=== PATIENT | male | born 1965 | race Caucasian/White ===

== ENCOUNTER 2022-03-05 22:09 | Inpatient (IN) ==
[~2022-03-05 22:09] MED LIST: EPINEPHrine SYR 0.1MG/ML 10 ml SYRINGE ONE
[2022-03-05] MEDS ORDERED: Propofol 10 MG/ML 20 ML BTL IV PUSH ONE (22:23)
[2022-03-05] MEDS ORDERED: NS 0.9% 1000 ml BAG 3,000 ML IV ONE (22:29)
[2022-03-05 22:38] LABS: ABS Eosinophils 0.1 10^3/ul (0-0.6); ABS Lymphocytes 0.8 10^3/ul (1.0-4.8); ABS Monocytes 0.5 10^3/ul (0-0.8); ABS Neutrophils 13.2 10^3/ul (1.5-7.7); Eosinophil % 0.4 %; Hematocrit 45 % (42-52); Lymphocyte % 5.3 %; Mean Corpuscular HGB Conc 34 g/dL (31-36); Mean Corpuscular Hemoglobin 29 pg (27-31); Mean Corpuscular Volume 87 fL (80-94); Mean Platelet Volume 8.7 fL (7.4-10.4); Platelet Count 206 10^3/uL (150-450); Red Cell Distribution Width 15 % (10-15); White Blood Count 14.6 10^3/uL (3.5-10.8)
[2022-03-05 22:50] LABS: Activated Partial Thrombo Time 32.6 seconds (26.0-38.0); INR 1.29 (0.89-1.11)
[2022-03-05] MEDS ORDERED: Succinylcholine 200 mg VIAL 20 mg/ml 10 ml VIAL (200 mg) ONE (23:01)
[2022-03-05] MEDS ORDERED: Esmolol 10 MG/ML IVPREMIX 2,500 MG/250 ML BAG IV ONE (23:05)
[2022-03-05] MEDS ORDERED: Ondansetron 4 mg VIAL 2 MG/ML 2 ml VIAL IV PRN (23:17)
[2022-03-05 23:24] LABS: Albumin 4.1 g/dL (3.2-5.2); Potassium 3.9 mmol/L (3.5-5.0)
[2022-03-05 23:30] LABS: Albumin/Globulin Ratio 1.8 (1-3); C Reactive Protein 22.43 mg/L (<8.01); Globulin 2.3 g/dL (2-4); Total Protein 6.4 g/dL (6.4-8.9); eGFR CKD-EPI 78.1 (>60)
[2022-03-05] MEDS ORDERED: Propofol 10 mg/ml 100 ML BTL 100 ML ONE (23:37)
[2022-03-05] MEDS: Propofol 10 mg/ml 100 ML BTL 100 ML IV SCH (23:45)
[2022-03-05] MEDS ORDERED: Enoxaparin 100 MG/ML SYR SUBCUT SCH (23:45)
[2022-03-06] MEDS ORDERED: fentaNYL 100 mcg/2 ml 50 MCG/ML VIAL IV SLOW PU ONE (00:04)
[2022-03-06] MEDS ORDERED: Acetaminophen IV 1 GM/100ML 1,000 MG/100 ML BAG IV ONE (00:17)
[2022-03-06] MEDS: Acetaminophen IV 1 GM/100ML 1,000 MG/100 ML BAG IV SCH ×3 (00:19→12:44)
[2022-03-06] MEDS: Pantoprazole VIAL 40 MG VIAL IV SCH ×2 (00:26→23:44)
[2022-03-06] MEDS: Chlorhexidine MOUTHWASH 0.12% 15 ML UDC TOPICAL SCH ×7 (00:26→23:35)
[2022-03-06] MEDS ORDERED: Vancomycin 1,000 MG in NS 0.9% 250 ml 250 ML IVPB ONE (00:42)
[2022-03-06] MEDS ORDERED: Piperacillin/Tazobac ADVAN 3.375 GM in NS 0.9% 100 ml BAG 100 ML IV ONE (00:42)
[2022-03-06] MEDS ORDERED: Enoxaparin 100 MG/ML SYR SUBCUT SCH (01:00)
[2022-03-06] MEDS ORDERED: Vancomycin per Pharmacy 1 EA NOTE FOLLOW UP SCH (01:00)
[2022-03-06] MEDS ORDERED: Zosyn per Pharmacy NOTE FOLLOW UP SCH (01:00)
[2022-03-06] MEDS ORDERED: Vancomycin 2,000 MG in NS 0.9% 500 ml BAG 500 ML IVPB ONE (01:00)
[2022-03-06 01:01] LABS: PCO2 Arterial 39 mmHg (35-45); PO2 Arterial 153 mmHg (80-100)
[2022-03-06 01:05] LABS: Urine Appearance Cloudy; Urine Bilirubin Negative (Negative); Urine Blood 1+ (Negative); Urine Color Amber; Urine Glucose Negative (Negative); Urine Ketones Negative (Negative); Urine Nitrite Negative (Negative); Urine Protein 2+(100 mg/dL) (Negative); Urine Specific Gravity 1.019 (1.002-1.030); Urine Urobilinogen Positive (Negative)
[2022-03-06 01:06] LABS: Magnesium 1.7 mg/dL (1.9-2.7)
[2022-03-06 01:11] LABS: Urine Bacteria Absent (Absent); Urine Red Blood Cell 3+(>10/hpf) (Absent); Urine Squamous Epithelial Cell Present (Absent); Urine White Blood Cell Trace(0-5/hpf) (Absent)
[2022-03-06] MEDS: Norepinephrine 16MCG/ML BAGD5W 4,000 MCG/250 ML BAG IV SCH ×6 (01:20→20:05)
[2022-03-06] MEDS ORDERED: Iodixanol (CONTRAST) 320 MG/ML 100 ML SDV IV ONE (01:31)
[2022-03-06] MEDS: Propofol 10 mg/ml 100 ML BTL 100 ML IV SCH ×9 (01:50→22:03)
[2022-03-06 02:18] LABS: High Sensitivity Troponin 1 Hr 428 pg/mL (<20)
[2022-03-06 02:34] LABS: Blood Urea Nitrogen 22 mg/dL (6-24); CO2 Carbon Dioxide 24 mmol/L (22-32); Calcium 9.8 mg/dL (8.6-10.3); Chloride 108 mmol/L (101-111); Glucose 155 mg/dL (70-100); Sodium 140 mmol/L (135-145); eGFR CKD-EPI 46.7 (>60)
[2022-03-06 02:41] LABS: Anion Gap 8 mmol/L (2-11)
[2022-03-06] MEDS: DOXYcycline 100 MG in NS 0.9% 250 ml 250 ML IVPB SCH ×2 (03:04→13:26)
[2022-03-06] MEDS ORDERED: Dextrose 50% Syringe 50 ml 25 GM/50 ML SYRINGE IV PUSH PRN (03:58)
[2022-03-06] MEDS: Lactated Ringers 1000 ml BAG 1,000 ML IV SCH ×3 (04:05→20:08)
[2022-03-06 05:45] LABS: Hematocrit 46 % (42-52); Hemoglobin 15.1 g/dL (14.0-18.0); Mean Corpuscular HGB Conc 33 g/dL (31-36); Mean Corpuscular Hemoglobin 29 pg (27-31); Mean Corpuscular Volume 89 fL (80-94); Mean Platelet Volume 8.6 fL (7.4-10.4); Platelet Count 251 10^3/uL (150-450); Red Blood Count 5.16 10^6 /uL (4.18-5.48); Red Cell Distribution Width 15 % (10-15); White Blood Count 32.9 10^3/uL (3.5-10.8)
[2022-03-06 06:25] LABS: Albumin 3.7 g/dL (3.2-5.2); Albumin/Globulin Ratio 1.9 (1-3); Calcium 9.5 mg/dL (8.6-10.3); Globulin 1.9 g/dL (2-4); Magnesium 1.9 mg/dL (1.9-2.7); Phosphorus 1.5 mg/dL (2.5-5.0); Potassium 3.5 mmol/L (3.5-5.0); Total Bilirubin 2.4 mg/dL (0.2-1.0); Total Protein 5.6 g/dL (6.4-8.9); eGFR CKD-EPI 35.3 (>60)
[2022-03-06] MEDS ORDERED: Potassium Phosphate IV 10 MMOLE in NS 0.9% 250 ml 250 ML IVPB ONE (06:35)
[2022-03-06 07:09] LABS: RBC Morphology Normal (Normal)
[2022-03-06 07:10] LABS: ABS Basophils 0.1 10^3/ul (0-0.2); ABS Lymphocytes 0.8 10^3/ul (1.0-4.8); ABS Monocytes 1.1 10^3/ul (0-0.8); ABS Neutrophils 30.8 10^3/ul (1.5-7.7); Lymphocyte % 2.6 %
[2022-03-06] MEDS ORDERED: Magnesium Sulfate IV 1GM/100ML 1 GM/100 ML BAG IV ONE ×2 (08:29→10:31)
[2022-03-06] MEDS: ZOSYN 3.375 GM Q8H per EXTENDED INFUSION IV SCH ×3 (08:48→23:34)
[2022-03-06 10:11] LABS: TSH Ultra Thyroid Stim Horm 2.12 mcIU/mL (0.34-5.60)
[2022-03-06 10:13] LABS: Free T4 0.96 ng/dL (0.61-1.12)
[2022-03-06] MEDS ORDERED: Perflutren Lipid Microsphere 3 ML VIAL ONE (11:56)
[2022-03-06 12:46] LABS: Calcium 9.2 mg/dL (8.6-10.3); Magnesium 2.3 mg/dL (1.9-2.7); Phosphorus 4.4 mg/dL (2.5-5.0); Potassium 4.4 mmol/L (3.5-5.0); Vancomycin Random 14.7 mcg/mL; eGFR CKD-EPI 28.9 (>60)
[2022-03-06] MEDS ORDERED: Amiodarone 150 mg IVPREMIX 150 MG/100 ML BAG IV ONE (14:45)
[2022-03-06] MEDS ORDERED: .Amiodarone 24HR ONLY IV Protocol Order Note IV ONE (14:45)
[2022-03-06] MEDS ORDERED: Amiodarone 360 MG IVPREMIX 360 MG/200 ML BAG IV SCH (15:00)
[2022-03-06] MEDS ORDERED: Vancomycin Random Level NOTE FOLLOW UP ONE (16:00)
[2022-03-06 16:38] LABS: PCO2 Arterial 32 mmHg (35-45); PO2 Arterial 75 mmHg (80-100)
[2022-03-06] MEDS ORDERED: Vancomycin 1,500 MG in NS 0.9% 250 ml 250 ML IVPB ONE (20:00)
[2022-03-06] MEDS: Amiodarone 360 MG IVPREMIX 360 MG/200 ML BAG IV SCH (21:09)
[2022-03-06] MEDS: Acetaminophen IV 1 GM/100ML 1,000 MG/100 ML BAG IV PRN (23:38)
[2022-03-07] MEDS: Propofol 10 mg/ml 100 ML BTL 100 ML IV SCH ×9 (00:30→21:23)
[2022-03-07] MEDS: DOXYcycline 100 MG in NS 0.9% 250 ml 250 ML IVPB SCH ×2 (00:48→13:02)
[2022-03-07] MEDS: Chlorhexidine MOUTHWASH 0.12% 15 ML UDC TOPICAL SCH ×6 (02:07→21:15)
[2022-03-07] MEDS: Lactated Ringers 1000 ml BAG 1,000 ML IV SCH ×4 (04:09→20:59)
[2022-03-07 04:30] LABS: ABS Basophils 0.1 10^3/ul (0-0.2); ABS Lymphocytes 0.8 10^3/ul (1.0-4.8); ABS Neutrophils 19.4 10^3/ul (1.5-7.7); Hematocrit 40 % (42-52); Hemoglobin 13.5 g/dL (14.0-18.0); Lymphocyte % 3.7 %; Mean Corpuscular HGB Conc 34 g/dL (31-36); Mean Corpuscular Hemoglobin 30 pg (27-31); Mean Corpuscular Volume 88 fL (80-94); Mean Platelet Volume 8.6 fL (7.4-10.4); Platelet Count 174 10^3/uL (150-450); Red Blood Count 4.57 10^6 /uL (4.18-5.48); Red Cell Distribution Width 15 % (10-15); White Blood Count 21.4 10^3/uL (3.5-10.8)
[2022-03-07 04:56] LABS: Albumin/Globulin Ratio 1.8 (1-3); Calcium 8.8 mg/dL (8.6-10.3); Globulin 1.7 g/dL (2-4); Phosphorus 4.1 mg/dL (2.5-5.0); Total Bilirubin 1.3 mg/dL (0.2-1.0); Total Protein 4.7 g/dL (6.4-8.9); eGFR CKD-EPI 22.4 (>60)
[2022-03-07] MEDS: Levothyroxine 100 MCG/5 ML VIAL IV SCH (05:56)
[2022-03-07] MEDS ORDERED: Vancomycin Random Level NOTE FOLLOW UP ONE (06:00)
[2022-03-07] MEDS: ZOSYN 3.375 GM Q8H per EXTENDED INFUSION IV SCH ×3 (06:27→23:37)
[2022-03-07] MEDS: Acetaminophen IV 1 GM/100ML 1,000 MG/100 ML BAG IV PRN (08:06)
[2022-03-07] MEDS: Amiodarone 360 MG IVPREMIX 360 MG/200 ML BAG IV SCH (08:08)
[2022-03-07 11:28] LABS: Urine Creatinine Concentration 103.59 mg/dL; Urine Sodium Concentration < 18 mmol/L
[2022-03-07] MEDS: Heparin DRIP 25,000 UNITS BAG 25,000 UNITS/500 ML BAG IV SCH (14:10)
[2022-03-07] MEDS: Acetaminophen IV 1 GM/100ML 1,000 MG/100 ML BAG IV SCH ×2 (15:13→21:14)
[2022-03-07] MEDS: Pantoprazole VIAL 40 MG VIAL IV SCH (23:15)
[2022-03-08] MEDS: Propofol 10 mg/ml 100 ML BTL 100 ML IV SCH ×10 (00:01→22:50)
[2022-03-08] MEDS: DOXYcycline 100 MG in NS 0.9% 250 ml 250 ML IVPB SCH ×2 (00:41→12:21)
[2022-03-08] MEDS: Chlorhexidine MOUTHWASH 0.12% 15 ML UDC TOPICAL SCH ×6 (02:24→21:23)
[2022-03-08] MEDS: Heparin DRIP 25,000 UNITS BAG 25,000 UNITS/500 ML BAG IV SCH (02:46)
[2022-03-08] MEDS: Lactated Ringers 1000 ml BAG 1,000 ML IV SCH (04:47)
[2022-03-08] MEDS: Acetaminophen IV 1 GM/100ML 1,000 MG/100 ML BAG IV SCH ×3 (05:48→21:24)
[2022-03-08] MEDS: Levothyroxine 100 MCG/5 ML VIAL IV SCH (05:50)
[2022-03-08 05:55] LABS: ABS Lymphocytes 0.7 10^3/ul (1.0-4.8); ABS Monocytes 0.6 10^3/ul (0-0.8); ABS Neutrophils 14.4 10^3/ul (1.5-7.7); Eosinophil % 0.3 %; Hematocrit 35 % (42-52); Hemoglobin 12.1 g/dL (14.0-18.0); Lymphocyte % 4.5 %; Mean Corpuscular HGB Conc 34 g/dL (31-36); Mean Corpuscular Hemoglobin 30 pg (27-31); Mean Corpuscular Volume 88 fL (80-94); Mean Platelet Volume 8.7 fL (7.4-10.4); Platelet Count 152 10^3/uL (150-450); Red Blood Count 4.03 10^6 /uL (4.18-5.48); Red Cell Distribution Width 15 % (10-15); White Blood Count 15.8 10^3/uL (3.5-10.8)
[2022-03-08 06:45] LABS: Albumin 2.8 g/dL (3.2-5.2); Albumin/Globulin Ratio 1.6 (1-3); Calcium 8.5 mg/dL (8.6-10.3); Globulin 1.8 g/dL (2-4); Magnesium 2.1 mg/dL (1.9-2.7); Phosphorus 5.5 mg/dL (2.5-5.0); Potassium 3.8 mmol/L (3.5-5.0); Total Bilirubin 0.9 mg/dL (0.2-1.0); Total Protein 4.6 g/dL (6.4-8.9); eGFR CKD-EPI 18.1 (>60)
[2022-03-08] MEDS: ZOSYN 3.375 GM Q8H per EXTENDED INFUSION IV SCH ×3 (06:57→23:14)
[2022-03-08] MEDS ORDERED: Potassium Chloride LIQUID 20 MEQ/15 ML LIQUID PO ONE (07:46)
[2022-03-08] MEDS ORDERED: Furosemide 40 mg/4 ml IV VIAL IV ONE (09:02)
[2022-03-08] MEDS: Linezolid 600 MG IVPREMIX(*) 600 MG/300 ML BAG IVPB SCH ×2 (09:26→23:16)
[2022-03-08] MEDS ORDERED: Heparin DRIP 25,000 UNITS BAG 25,000 UNITS/500 ML BAG IV SCH (11:15)
[2022-03-08] MEDS ORDERED: Acetylcysteine INHALATION SOL 200 MG/ML NEB.SOLN 10 ML ONE (13:16)
[2022-03-08 14:26] LABS: Body Fluid Source Broncheoalveolar lav
[2022-03-08 16:04] LABS: Body Fluid Appearance Cloudy; Body Fluid Color Colorless
[2022-03-08 18:57] LABS: Calcium 8.7 mg/dL (8.6-10.3); Potassium 3.7 mmol/L (3.5-5.0)
[2022-03-08 20:11] LABS: Body Fluid Other Cells 5; Body Fluid Total Cells Counted 300
[2022-03-08] MEDS ORDERED: KCL 20 MEQ/100 ML IVPREMIX 20 MEQ/100 ML BAG IV ONE (20:52)
[2022-03-09] MEDS: Pantoprazole VIAL 40 MG VIAL IV SCH ×2 (00:02→23:31)
[2022-03-09] MEDS: Propofol 10 mg/ml 100 ML BTL 100 ML IV SCH ×5 (01:05→09:00)
[2022-03-09] MEDS: DOXYcycline 100 MG in NS 0.9% 250 ml 250 ML IVPB SCH ×2 (01:17→15:15)
[2022-03-09] MEDS: Chlorhexidine MOUTHWASH 0.12% 15 ML UDC TOPICAL SCH ×3 (02:45→11:00)
[2022-03-09] MEDS: Levothyroxine 100 MCG/5 ML VIAL IV SCH (05:15)
[2022-03-09] MEDS: Acetaminophen IV 1 GM/100ML 1,000 MG/100 ML BAG IV SCH ×3 (05:49→20:55)
[2022-03-09 05:55] LABS: ABS Basophils 0.1 10^3/ul (0-0.2); ABS Eosinophils 0.3 10^3/ul (0-0.6); ABS Lymphocytes 0.7 10^3/ul (1.0-4.8); ABS Monocytes 0.5 10^3/ul (0-0.8); ABS Neutrophils 9.7 10^3/ul (1.5-7.7); Eosinophil % 2.7 %; Hematocrit 37 % (42-52); Hemoglobin 12.1 g/dL (14.0-18.0); Lymphocyte % 6.1 %; Mean Corpuscular HGB Conc 33 g/dL (31-36); Mean Corpuscular Hemoglobin 30 pg (27-31); Mean Corpuscular Volume 89 fL (80-94); Mean Platelet Volume 8.7 fL (7.4-10.4); Platelet Count 156 10^3/uL (150-450); Red Blood Count 4.09 10^6 /uL (4.18-5.48); Red Cell Distribution Width 15 % (10-15); White Blood Count 11.3 10^3/uL (3.5-10.8)
[2022-03-09 06:10] LABS: Albumin/Globulin Ratio 1.5 (1-3); Magnesium 2.1 mg/dL (1.9-2.7); Phosphorus 4.5 mg/dL (2.5-5.0); Potassium 3.7 mmol/L (3.5-5.0); Total Bilirubin 1.1 mg/dL (0.2-1.0); eGFR CKD-EPI 18.9 (>60)
[2022-03-09] MEDS ORDERED: KCL 20 MEQ/100 ML IVPREMIX 20 MEQ/100 ML BAG IV ONE (06:17)
[2022-03-09] MEDS: ZOSYN 3.375 GM Q8H per EXTENDED INFUSION IV SCH ×3 (07:58→23:32)
[2022-03-09 10:42] LABS: PCO2 Arterial 32 mmHg (35-45); PO2 Arterial 66 mmHg (80-100)
[2022-03-09] MEDS: Linezolid 600 MG IVPREMIX(*) 600 MG/300 ML BAG IVPB SCH ×2 (11:00→20:01)
[2022-03-09 20:27] LABS: Anaplasma phagocytophilum Negative (Negative); B. miyamotoi PCR, B Negative (Negative); Babesia divergens/MO-1 Negative (Negative); Babesia ducani Negative (Negative); Ehrlichia chaffeensis Negative (Negative); Ehrlichia ewingii/canis Negative (Negative); Ehrlichia muris eauclairensis Negative (Negative)
[2022-03-10] MEDS: DOXYcycline 100 MG in NS 0.9% 250 ml 250 ML IVPB SCH ×2 (01:51→12:18)
[2022-03-10] MEDS: Levothyroxine 100 MCG/5 ML VIAL IV SCH (04:49)
[2022-03-10 04:59] LABS: Hematocrit 34 % (42-52); Hemoglobin 11.5 g/dL (14.0-18.0); Mean Corpuscular HGB Conc 34 g/dL (31-36); Mean Corpuscular Hemoglobin 30 pg (27-31); Mean Corpuscular Volume 89 fL (80-94); Mean Platelet Volume 8.6 fL (7.4-10.4); Platelet Count 144 10^3/uL (150-450); Red Blood Count 3.84 10^6 /uL (4.18-5.48); Red Cell Distribution Width 15 % (10-15)
[2022-03-10 05:39] LABS: Albumin 2.9 g/dL (3.2-5.2); Albumin/Globulin Ratio 1.5 (1-3); Globulin 1.9 g/dL (2-4); Magnesium 2.2 mg/dL (1.9-2.7); Potassium 3.7 mmol/L (3.5-5.0); Total Bilirubin 1.2 mg/dL (0.2-1.0); Total Protein 4.8 g/dL (6.4-8.9); eGFR CKD-EPI 21.9 (>60)
[2022-03-10] MEDS ORDERED: KCL 20 MEQ/100 ML IVPREMIX 20 MEQ/100 ML BAG IV ONE (05:59)
[2022-03-10 07:18] LABS: ABS Eosinophils 0.3 10^3/ul (0-0.6); ABS Lymphocytes 0.6 10^3/ul (1.0-4.8); ABS Monocytes 0.6 10^3/ul (0-0.8); ABS Neutrophils 7.4 10^3/ul (1.5-7.7); Eosinophil % 3.8 %; Lymphocyte % 6.7 %
[2022-03-10] MEDS: Lidocaine PATCH 5% PATCH TRANSDERM SCH (08:09)
[2022-03-10] MEDS: ZOSYN 3.375 GM Q8H per EXTENDED INFUSION IV SCH ×3 (08:09→23:15)
[2022-03-10] MEDS: Pantoprazole VIAL 40 MG VIAL IV SCH (23:15)
[2022-03-11] MEDS: DOXYcycline 100 MG in NS 0.9% 250 ml 250 ML IVPB SCH ×2 (00:36→13:42)
[2022-03-11 03:34] LABS: Hematocrit 32 % (42-52); Hemoglobin 10.6 g/dL (14.0-18.0); Mean Corpuscular HGB Conc 33 g/dL (31-36); Mean Corpuscular Hemoglobin 30 pg (27-31); Mean Corpuscular Volume 90 fL (80-94); Mean Platelet Volume 8.7 fL (7.4-10.4); Platelet Count 149 10^3/uL (150-450); Red Blood Count 3.55 10^6 /uL (4.18-5.48); Red Cell Distribution Width 15 % (10-15); White Blood Count 8.3 10^3/uL (3.5-10.8)
[2022-03-11 03:40] LABS: ABS Eosinophils 0.3 10^3/ul (0-0.6); ABS Lymphocytes 0.7 10^3/ul (1.0-4.8); ABS Monocytes 0.6 10^3/ul (0-0.8); ABS Neutrophils 6.6 10^3/ul (1.5-7.7); Eosinophil % 3.2 %; Lymphocyte % 8.9 %
[2022-03-11 04:29] LABS: Albumin/Globulin Ratio 1.8 (1-3); Calcium 9.2 mg/dL (8.6-10.3); Globulin 1.7 g/dL (2-4); Magnesium 2.1 mg/dL (1.9-2.7); Phosphorus 3.8 mg/dL (2.5-5.0); Potassium 3.7 mmol/L (3.5-5.0); Total Bilirubin 1.2 mg/dL (0.2-1.0); Total Protein 4.7 g/dL (6.4-8.9); eGFR CKD-EPI 24.9 (>60)
[2022-03-11] MEDS: Levothyroxine 100 MCG/5 ML VIAL IV SCH (06:21)
[2022-03-11] MEDS ORDERED: Potassium Chlor 20 meq TAB.ER PO ONE (08:00)
[2022-03-11] MEDS: ZOSYN 3.375 GM Q8H per EXTENDED INFUSION IV SCH ×3 (10:20→21:37)
[2022-03-11] MEDS: Lidocaine PATCH 5% PATCH TRANSDERM SCH (10:20)
[2022-03-12] MEDS: DOXYcycline 100 MG in NS 0.9% 250 ml 250 ML IVPB SCH (00:11)
[2022-03-12 07:05] LABS: Hematocrit 34 % (42-52); Hemoglobin 11.6 g/dL (14.0-18.0); Mean Corpuscular HGB Conc 34 g/dL (31-36); Mean Corpuscular Hemoglobin 30 pg (27-31); Mean Corpuscular Volume 89 fL (80-94); Mean Platelet Volume 8.3 fL (7.4-10.4); Platelet Count 200 10^3/uL (150-450); Red Blood Count 3.88 10^6 /uL (4.18-5.48); Red Cell Distribution Width 15 % (10-15); White Blood Count 7.8 10^3/uL (3.5-10.8)
[2022-03-12 07:20] LABS: Albumin 3.3 g/dL (3.2-5.2); CO2 Carbon Dioxide 19 mmol/L (22-32); Calcium 9.7 mg/dL (8.6-10.3); Chloride 109 mmol/L (101-111); Sodium 141 mmol/L (135-145)
[2022-03-12 07:24] LABS: Anion Gap 13 mmol/L (2-11)
[2022-03-12 07:25] LABS: ALT 55 U/L (7-52); Albumin/Globulin Ratio 1.5 (1-3); Alkaline Phosphatase 143 U/L (35-149); Blood Urea Nitrogen 47 mg/dL (6-24); Globulin 2.2 g/dL (2-4); Glucose 145 mg/dL (70-100); Total Protein 5.5 g/dL (6.4-8.9)
[2022-03-12] MEDS: Lidocaine PATCH 5% PATCH TRANSDERM SCH (08:48)
[2022-03-12 09:15] LABS: ABS Eosinophils 0.4 10^3/ul (0-0.6); ABS Lymphocytes 0.7 10^3/ul (1.0-4.8); ABS Monocytes 0.5 10^3/ul (0-0.8); ABS Neutrophils 6.1 10^3/ul (1.5-7.7); Eosinophil % 4.6 %; Lymphocyte % 9.1 %; Nucleated Red Blood Cells % 0.1
[2022-03-13 08:26] LABS: Hematocrit 38 % (42-52); Hemoglobin 12.3 g/dL (14.0-18.0); Mean Corpuscular HGB Conc 33 g/dL (31-36); Mean Corpuscular Hemoglobin 30 pg (27-31); Mean Corpuscular Volume 91 fL (80-94); Mean Platelet Volume 7.9 fL (7.4-10.4); Platelet Count 227 10^3/uL (150-450); Red Blood Count 4.15 10^6 /uL (4.18-5.48); Red Cell Distribution Width 14 % (10-15); White Blood Count 7.2 10^3/uL (3.5-10.8)
[2022-03-13 08:52] LABS: Anion Gap 14 mmol/L (2-11); CO2 Carbon Dioxide 16 mmol/L (22-32); Calcium 10.1 mg/dL (8.6-10.3); Chloride 110 mmol/L (101-111); Magnesium 1.9 mg/dL (1.9-2.7); Sodium 140 mmol/L (135-145)
[2022-03-13 08:57] LABS: Blood Urea Nitrogen 45 mg/dL (6-24); Glucose 155 mg/dL (70-100); eGFR CKD-EPI 28.3 (>60)
[2022-03-13 09:10] LABS: ABS Eosinophils 0.2 10^3/ul (0-0.6); ABS Lymphocytes 0.8 10^3/ul (1.0-4.8); ABS Monocytes 0.6 10^3/ul (0-0.8); ABS Neutrophils 5.5 10^3/ul (1.5-7.7); Eosinophil % 3.4 %; Lymphocyte % 10.8 %; Nucleated Red Blood Cells % 0.1
[2022-03-13 10:09] LABS: Phosphorus 3.7 mg/dL (2.5-5.0); Potassium Redraw 3.8 mmol/L (3.5-5.0)
[2022-03-13] MEDS: Lidocaine PATCH 5% PATCH TRANSDERM SCH (12:12)
[2022-03-14 06:02] LABS: ABS Eosinophils 0.3 10^3/ul (0-0.6); ABS Lymphocytes 0.8 10^3/ul (1.0-4.8); ABS Monocytes 0.6 10^3/ul (0-0.8); Eosinophil % 3.3 %; Hematocrit 35 % (42-52); Mean Corpuscular HGB Conc 34 g/dL (31-36); Mean Corpuscular Hemoglobin 31 pg (27-31); Mean Corpuscular Volume 89 fL (80-94); Mean Platelet Volume 8.3 fL (7.4-10.4); Platelet Count 285 10^3/uL (150-450); Red Blood Count 3.92 10^6 /uL (4.18-5.48); Red Cell Distribution Width 14 % (10-15); White Blood Count 7.7 10^3/uL (3.5-10.8)
[2022-03-14 06:16] LABS: Potassium 3.6 mmol/L (3.5-5.0); eGFR CKD-EPI 29.2 (>60)
[2022-03-14] MEDS: Lidocaine PATCH 5% PATCH TRANSDERM SCH (09:39)
[2022-03-15 05:56] LABS: ABS Eosinophils 0.2 10^3/ul (0-0.6); ABS Lymphocytes 0.9 10^3/ul (1.0-4.8); ABS Monocytes 0.7 10^3/ul (0-0.8); ABS Neutrophils 6.4 10^3/ul (1.5-7.7); Eosinophil % 2.7 %; Hematocrit 34 % (42-52); Hemoglobin 11.3 g/dL (14.0-18.0); Lymphocyte % 10.5 %; Mean Corpuscular HGB Conc 34 g/dL (31-36); Mean Corpuscular Hemoglobin 30 pg (27-31); Mean Corpuscular Volume 89 fL (80-94); Mean Platelet Volume 7.5 fL (7.4-10.4); Platelet Count 310 10^3/uL (150-450); Red Blood Count 3.81 10^6 /uL (4.18-5.48); Red Cell Distribution Width 14 % (10-15); White Blood Count 8.2 10^3/uL (3.5-10.8)
[2022-03-15 06:33] LABS: Magnesium 1.8 mg/dL (1.9-2.7); Potassium 3.7 mmol/L (3.5-5.0); eGFR CKD-EPI 31.4 (>60)
[2022-03-15] MEDS: Lidocaine PATCH 5% PATCH TRANSDERM SCH (08:44)
[2022-03-16] MEDS: Lidocaine PATCH 5% PATCH TRANSDERM SCH (09:14)
[2022-03-16 10:09] LABS: Calcium 10.6 mg/dL (8.6-10.3); Potassium 3.4 mmol/L (3.5-5.0); eGFR CKD-EPI 35.1 (>60)
[2022-03-16] MEDS ORDERED: Potassium Chlor 20 meq TAB.ER PO ONE (16:22)
[2022-03-17] MEDS: Lidocaine PATCH 5% PATCH TRANSDERM SCH (09:08)
[2022-03-17 09:29] LABS: ABS Basophils 0.1 10^3/ul (0-0.2); ABS Eosinophils 0.2 10^3/ul (0-0.6); ABS Lymphocytes 0.9 10^3/ul (1.0-4.8); ABS Monocytes 0.6 10^3/ul (0-0.8); ABS Neutrophils 5.5 10^3/ul (1.5-7.7); Eosinophil % 2.4 %; Hematocrit 37 % (42-52); Hemoglobin 12.4 g/dL (14.0-18.0); Mean Corpuscular HGB Conc 34 g/dL (31-36); Mean Corpuscular Hemoglobin 30 pg (27-31); Mean Corpuscular Volume 89 fL (80-94); Mean Platelet Volume 7.6 fL (7.4-10.4); Platelet Count 372 10^3/uL (150-450); Red Blood Count 4.12 10^6 /uL (4.18-5.48); Red Cell Distribution Width 14 % (10-15); White Blood Count 7.2 10^3/uL (3.5-10.8)
[2022-03-17 09:43] LABS: Calcium 10.9 mg/dL (8.6-10.3); Magnesium 1.8 mg/dL (1.9-2.7); Potassium 3.8 mmol/L (3.5-5.0)
[2022-03-17 09:49] LABS: eGFR CKD-EPI 35.3 (>60)
[2022-03-17] MEDS ORDERED: Magnesium Sulfate IV 1GM/100ML 1 GM/100 ML BAG IV ONE (10:48)
[2022-03-18 07:14] LABS: ABS Eosinophils 0.2 10^3/ul (0-0.6); ABS Monocytes 0.7 10^3/ul (0-0.8); ABS Neutrophils 5.8 10^3/ul (1.5-7.7); Eosinophil % 2.6 %; Hematocrit 40 % (42-52); Hemoglobin 13.4 g/dL (14.0-18.0); Lymphocyte % 13.1 %; Mean Corpuscular HGB Conc 34 g/dL (31-36); Mean Corpuscular Hemoglobin 30 pg (27-31); Mean Corpuscular Volume 89 fL (80-94); Mean Platelet Volume 7.6 fL (7.4-10.4); Nucleated Red Blood Cells % 0.1; Platelet Count 376 10^3/uL (150-450); Red Blood Count 4.45 10^6 /uL (4.18-5.48); Red Cell Distribution Width 14 % (10-15); White Blood Count 7.7 10^3/uL (3.5-10.8)
[2022-03-18 07:58] LABS: CO2 Carbon Dioxide 21 mmol/L (22-32); Calcium 10.7 mg/dL (8.6-10.3); Chloride 104 mmol/L (101-111); Sodium 138 mmol/L (135-145)
[2022-03-18 08:04] LABS: Anion Gap 13 mmol/L (2-11); Blood Urea Nitrogen 38 mg/dL (6-24); Glucose 175 mg/dL (70-100); eGFR CKD-EPI 33.6 (>60)
[2022-03-18] MEDS: Lidocaine PATCH 5% PATCH TRANSDERM SCH (08:19)
[2022-03-19 06:52] LABS: Hematocrit 37 % (42-52); Hemoglobin 12.4 g/dL (14.0-18.0); Mean Corpuscular HGB Conc 34 g/dL (31-36); Mean Corpuscular Hemoglobin 30 pg (27-31); Mean Corpuscular Volume 88 fL (80-94); Mean Platelet Volume 7.5 fL (7.4-10.4); Platelet Count 354 10^3/uL (150-450); Red Blood Count 4.15 10^6 /uL (4.18-5.48); Red Cell Distribution Width 14 % (10-15); White Blood Count 7.1 10^3/uL (3.5-10.8)
[2022-03-19 07:24] LABS: Calcium 10.5 mg/dL (8.6-10.3); Magnesium 1.9 mg/dL (1.9-2.7); Potassium 4.1 mmol/L (3.5-5.0); eGFR CKD-EPI 34.3 (>60)
[2022-03-19] MEDS: Lidocaine PATCH 5% PATCH TRANSDERM SCH (09:17)
[2022-03-20] MEDS: Lidocaine PATCH 5% PATCH TRANSDERM SCH (07:31)
[2022-03-21] MEDS: Lidocaine PATCH 5% PATCH TRANSDERM SCH (09:28)
[2022-03-22 07:43] LABS: Calcium 10.3 mg/dL (8.6-10.3); Calcium (PTH Intact) 10.6 mg/dL (8.6-10.3); Potassium 3.8 mmol/L (3.5-5.0)
[2022-03-22] MEDS: Lidocaine PATCH 5% PATCH TRANSDERM SCH (08:48)
[2022-03-22 15:54] VITALS: BP 133/75
== END 2022-03-22 17:50 | disposition home or self-care (01) | DRG 720 ==
LOC: ED 22:09 → SUATTDRO 23:36 → ICU 23:36 → MEDTELE 03-13 05:29
PROVIDERS: ADMIT Surgery Surgical Critical Care; ATTEND Internal Medicine